=== PATIENT | male | born 1995 | race African-American/Black ===

== ENCOUNTER 2023-09-01 13:03 | Emergency (ER) | payer OTHER, SELFPAY ==
[2023-09-01 13:28] VITALS: BP 131/70; PULSE 84; RESP 18; TEMP 36.9; O2SAT 100
--- NOTE | 2023-09-01 14:08 | ED.MALEGU ---
HPI - Male Genitourinary General Chief complaint: Urogenital-Male Stated complaint: STD testing Source: patient Mode of arrival: ambulatory Limitations: no limitations History of Present Illness HPI Narrative: 27-year-old male presents [facility] requesting STD testing for herpes. Patient reports that his girlfriend recently was diagnosed with herpes at a local emergency room. Patient denies current lesions, penile discharge, urinary symptoms, fever, body aches, chills, nausea vomiting or diarrhea. Patient reports that his girlfriend tested negative for chlamydia, gonorrhea and Trichomonas and is not interested in STD testing for those diagnoses at this time. Relieving factors: none Exacerbating factors: none Associated symptoms: Reports denies other symptoms Related Data Sexually active: Yes Home Medications Medication Instructions Recorded Confirmed No Home Medications 09/01/23 09/01/23 Allergies Allergy/AdvReac Type Severity Reaction Status Date / Time No Known Allergies Allergy Verified 09/01/23 13:27 Review of Systems Constitutional: Constitutional: Denies fatigue, Denies fever(s) and Denies weakness ENT: Denies dysphagia, Denies vertigo and Denies dizziness Cardiovascular: Cardiovascular: Denies chest pain Respiratory: Respiratory: Denies cough, Denies dyspnea and Denies wheezing Gastrointestinal: Gastrointestinal: Denies diarrhea, Denies nausea and Denies vomiting Genitourinary: Comments: requesting herpes testing Musculoskeletal: Musculoskeletal: Denies arthralgias and Denies joint swelling Integumentary/Breasts: Skin/Breast: Denies rash Neurologic: Denies vertigo and Denies dizziness Exam Narrative: Informed patient that due to patient not having active lesion, herpes testing could not be completed today at this location. Informed patient he will need blood work completed To rule out herpes. Informed patient to follow-up with local health department or his primary care provider for appropriate STD testing. Patient refuses STD testing today for chlamydia, gonorrhea or Trichomonas.patient eloped prior to physical examination being completed. Course Course Level of Care: [facility] Visit Vital Signs Vital signs: Vital Signs Temperature 36.9 C 09/01/23 13:28 Pulse Rate 84 09/01/23 13:28 Respiratory Rate 18 09/01/23 13:28 Blood Pressure 131/70 09/01/23 13:28 Pulse Oximetry 100 09/01/23 13:28 Oxygen Delivery Room Air 09/01/23 13:28 Temperature 36.9 C 09/01/23 13:28 Pulse Rate 84 09/01/23 13:28 Respiratory Rate 18 09/01/23 13:28 Blood Pressure 131/70 09/01/23 13:28 Pulse Oximetry 100 09/01/23 13:28 Oxygen Delivery Room Air 09/01/23 13:28 MDM - Male Genitourinary MDM Narrative Medical decision making narrative: See physical exam portion of chart, physical exam was not completed today. Patient eloped prior to completion of exam. Instructed patient follow up with primary care provider or local health department to get herpes testing completed Differential Diagnosis Differential diagnosis: Likely genital herpes simplex Critical Care Time Critical Care Time Critical Care Time: No Discharge Plan Discharge Clinical Impression: Exposure to STD Patient Disposition: Elopement After Seen by Prov Condition: Stable Instructions: Safe Sex Practices (ED) Additional Instructions: Follow-up with local health department or primary care provider for full STD testing Patient Language: Japanese Prescriptions: No Action No Home Medications Follow-up/Referrals: PHYSICIAN,FOUNDATION RELATIONS DIRECTOR [Primary Care Provider] - Time of Disposition: 14:13
== END 2023-09-01 14:11 | disposition left against medical advice (07) ==
LOC: EXPCOLL 13:13
PROVIDERS: Emergency Provider Nurse Practitioner Family
DX: Z11.3 Encounter for screening for infections with a predominantly sexual mode of transmission (principal)
CPT/HCPCS: 99211; G0463